=== PATIENT | male | born 1995 | race Hispanic/Latino ===

== ENCOUNTER 2017-03-16 14:04 | Emergency (ER) | payer SELFPAY ==
[2017-03-16 14:45] LABS: #Eosinphils 0.1 thou/uL (0.0-0.7); #Lymphocytes 1.7 thou/uL (1.20-3.40); #Monocytes 0.9 thou/uL (0.11-0.59); #Neutrophils 10.4 thou/uL (1.40-6.50); %Basophils 0.3 % (0.0-1.0); %Eosinophils 0.5 % (0.0-10.0); %Lymphocytes 12.7 % (21.0-51.0); %Monocytes 6.6 % (0.0-10.0); Hematocrit 46.5 % (42.0-52.0); Mean Platelet Volume 7.1 fL (7.4-10.4); Red Blood Cell (RBC) Count 5.08 mill/uL (4.70-6.10)
[2017-03-16 15:10] LABS: Troponin I Less than 0.010 ng/mL (< 0.028)
[2017-03-16 15:13] LABS: Amphetamine Detected (NotDetected); Methadone Not Detected (NotDetected); Methamphetamine Detected (NotDetected)
[2017-03-16 15:14] LABS: ALT (SGPT) 34 U/L (8-55); AST (SGOT) 33 U/L (5-34); Alkaline Phosphatase 87 U/L (40-150); Anion Gap 20 mmol/L (10-20); BUN (Urea Nitrogen) 11 mg/dL (8.9-20.6); Bilirubin, Total 0.6 mg/dL (0.2-1.2); CK (CPK) 578 U/L (30-200); Calc. Creatinine Clearance 0 mL/min (70-130); Calcium 9.5 mg/dL (7.8-10.44); Carbon Dioxide 18 mmol/L (22-29); Chloride 106 mmol/L (98-107); Estimated GFR-MDRD 85; Globulin 3.5 g/dL (2.4-3.5); Protein, Total 8.4 g/dL (6.0-8.3)
--- NOTE | 2017-03-16 15:42 | RAD ---
RADIOGRAPH CHEST 1 VIEW: 03/16/17 HISTORY: 21-year-old male with tachycardia and unresponsiveness. FINDINGS: There is no air space density, pulmonary edema, or pneumothorax. The lateral costophrenic angles ar e sharp. IMPRESSION: No acute pulmonary findings. belkis [] POS: SJ
== END 2017-03-16 18:03 | disposition home or self-care (01) ==
LOC: EEVIPCON 14:04 → ERS 14:04
DX: F14.10 Cocaine abuse, uncomplicated (principal); F11.10 Opioid abuse, uncomplicated; F32.9 Major depressive disorder, single episode, unspecified
CPT/HCPCS: 36415; 71010; 80053; 80306; 82553; 84484; 85025; 93005; 93010; 96360; 96361

== ENCOUNTER 2018-07-04 15:50 | Emergency (ER) | payer SELFPAY ==
--- NOTE | 2018-07-04 16:19 | RAD ---
3 VIEW LEFT FOOT: Date: 07/04/18 INDICATION: Great toe pain. FINDINGS: There is no fracture or dislocation. No radiopaque foreign body. There is soft tissue prominence of t he great toe. Correlate clinically. IMPRESSION: No acute osseous abnormality of the great toe of the left foot. Soft tissue prominence is seen. Corre late clinically. POS: MARISABEL
== END 2018-07-04 16:42 | disposition home or self-care (01) ==
LOC: ERS 15:50
DX: S90.112A Contusion of left great toe without damage to nail, initial encounter (principal); F32.9 Major depressive disorder, single episode, unspecified; W22.8XXA Striking against or struck by other objects, initial encounter

== ENCOUNTER 2018-07-08 13:22 | Inpatient (IN) | payer SELFPAY ==
[2018-07-08 13:58] LABS: #Basophils 0.1 thou/uL (0.0-0.2); #Lymphocytes 1.7 thou/uL (1.20-3.40); #Monocytes 1.3 thou/uL (0.11-0.59); #Neutrophils 12.6 thou/uL (1.40-6.50); %Basophils 0.6 % (0.0-1.0); %Eosinophils 0.2 % (0.0-10.0); %Monocytes 8.5 % (0.0-10.0); %Neutrophils 79.7 % (42.0-75.0); Hemoglobin 16.1 g/dL (14.0-18.0); Mean Corpuscular HGB CONC 33.8 g/dL (32.0-36.0); Mean Corpuscular Hemoglobin 30.7 pg (27.0-31.0); Mean Corpuscular Volume 90.7 fL (78.0-98.0); Mean Platelet Volume 7.4 fL (7.4-10.4); Platelet Count 313 thou/uL (130-400); RBC Distribution Width 11.8 % (11.5-14.5); Red Blood Cell (RBC) Count 5.26 mill/uL (4.70-6.10); White Blood Cell (WBC) Count 15.8 thou/uL (4.8-10.8)
[2018-07-08 14:20] LABS: ALT (SGPT) 30 U/L (8-55); AST (SGOT) 15 U/L (5-34); Albumin 4.7 g/dL (3.5-5.0); Alkaline Phosphatase 88 U/L (40-150); Anion Gap 16 mmol/L (10-20); BUN (Urea Nitrogen) 13 mg/dL (8.9-20.6); Bilirubin, Total 0.9 mg/dL (0.2-1.2); Calc. Creatinine Clearance 0 mL/min (70-130); Calcium 10.3 mg/dL (7.8-10.44); Carbon Dioxide 25 mmol/L (22-29); Chloride 100 mmol/L (98-107); Estimated GFR-MDRD 83; Glucose 102 mg/dL (70-105); Lipase 7 U/L (8-78); Protein, Total 8.7 g/dL (6.0-8.3); Sodium 137 mmol/L (136-145)
[2018-07-08 14:53] LABS: Bilirubin Small (Negative); Blood, Urine Negative (Negative); Clarity CLEAR (Clear); Glucose, Urine (Dipstick) Negative (Negative); Leukocyte Negative (Negative); Nitrite Negative (Negative); Protein, Urine (Dipstick) 30 mg/dL (Neg-Trace); Specific Gravity, Urine 1.025 (1.002-1.036)
[2018-07-08 14:55] LABS: Bacteria/HPF None Seen HPF (None Seen); Hyaline Casts/LPF 0-3 HYALINE CAST LPF (0-3 Hyaline); Pathc Cast-AUWi Flag 0.14 (0-2.49); RBC/HPF None Seen HPF (0-3); Squamous Epithelial 0-3 HPF (0-3); WBC/HPF 0-3 HPF (0-3)
[2018-07-08] MEDS ORDERED: Morphine 4 MG/ML VIAL ONE (15:52)
[2018-07-08] MEDS ORDERED: metroNIDAZOLE 500 MG/100 ML BAG ONE (15:53)
[2018-07-08] MEDS ORDERED: Levofloxacin 500 mg/D5W 100 ml Premix Bag ONE (15:53)
[2018-07-08] MEDS ORDERED: Ondansetron PF 4 MG/2 ML Vial ONE (15:53)
--- NOTE | 2018-07-08 16:00 | CT ---
CT ABDOMEN AND PELVIS PERFORMED WITHOUT CONTRAST ENHANCEMENT: 07/08/18 HISTORY: Left lower quadrant abdominal pain, difficulty urinating x2 days. The lung bases are clear. The liver, spleen, pancreas, and gallbladder regions appear unremarkable on this noncontrast study. Right and left adrenal glands and right and left kidneys are normal in size. Small periaortic and mes enteric nodes are not felt to be of significance. CT OF PELVIS PERFORMED WITH CONTRAST ENHANCEMENT: There is wall thickening to the sigmoid colon. There is pericolic inflammatory change. There is what appear to be one to two tiny diverticula and there is a contained perforation with some free air seen adjacent to the sigmoid colon. Actually what appears to be a tiny amount of air which is probably wi thin a small venous structure. There is a fluid collection which is directly anterior to the rectosig moid region measuring 4 cm. This is not accessible to percutaneous drainage. IMPRESSION: Contained perforation of the sigmoid colon with pericolonic inflammation change and a small fluid col lection. This is compatible with changes related to colitis. There do appear to be a couple of tiny d iverticula in this region, so the possibility of diverticulitis would be a consideration. Other etiol ogies for a contained perforation or colitis such was inflammatory bowel disease should also be consi derations as well as other etiologies to explain perforation, although the area of contained perforat ion is fairly high in the sigmoid colon region. These findings were discussed with Jeniffer Skelton. POS: MARISABEL
[2018-07-08] MEDS ORDERED: HYDROcodone/Acetaminophen 5/325 mg Tablet PO PRN (16:50)
[2018-07-08] MEDS ORDERED: Acetaminophen 325 MG TAB PO PRN (16:50)
[2018-07-08] MEDS ORDERED: Morphine 4 MG/ML VIAL SLOW IVP PRN ×2 (16:53→16:55)
--- NOTE | 2018-07-08 17:12 | HP ---
PRIMARY CARE PHYSICIAN: Dr. Tyler. CHIEF COMPLAINT: Abdominal discomfort of 2 days duration. HISTORY OF PRESENT ILLNESS: The patient is a 23-year-old male with no past medical history. He presented to the emergency room with abdominal discomfort that started 2 days ago. It is localized in the left lower quadrant. It started as intermittent pain. However, later on, it became more or less constant. The pain is 9/10 without any aggravating or relieving factor. He had cold sweats with low-grade fever. He did not record his temperature. He also had difficulty urinating over the past two days. No blood in the urine reported. He denies any burning in the urine as well. He took nvcu-wkw-julcgus laxatives yesterday due to 3-day history of constipation. He had watery diarrhea on and off over the last 24 hours after this. He denies any sick contacts, recent travel, or family history of irritable bowel disease. In the emergency room, initial vital signs showed temperature 98.3, respirations 18, and pulse rate of 112 with a blood pressure of 117/83 with O2 saturation 98% on room air. CT scan of the abdomen and pelvis done in the emergency room showed contained perforation of the sigmoid colon with pericolonic inflammation change and a small fluid collection compatible with colitis. There do appear to be couple of tiny diverticula in this region. The possibility of diverticulitis would be a consideration as well. Other possibilities include inflammatory bowel disease. He received Levaquin, Flagyl, and morphine with IV fluids in the emergency room. He denies any free previous endoscopies. Usual bowel movements every other day. PAST MEDICAL HISTORY: Reviewed with the patient and none. PAST SURGICAL HISTORY: Reviewed with the patient and none. ALLERGIES: THE PATIENT IS ALLERGIC TO IODINE. CURRENT HOME MEDICATIONS: Reviewed with the patient and none. SOCIAL HISTORY: He lives at home with his family. No smoking, alcohol, or drug use. FAMILY HISTORY: Positive for diabetes. REVIEW OF SYSTEMS: All other review of systems was reviewed and was found. PHYSICAL EXAMINATION: VITAL SIGNS: As discussed above. GENERAL: A 23-year-old male, in no significant distress. Pain improved after IV morphine. HEENT: Head, atraumatic and normocephalic. Sclerae anicteric. Dry mucous membranes. No oral lesion. NECK: Supple. No JVD. No carotid bruit. LUNGS: Clear to auscultation bilaterally. No wheezing, rales, or rhonchi. HEART: S1 and S2 present. Regular rate and rhythm. Tachycardic. No significant murmurs appreciated. ABDOMEN: Soft. Tenderness in the left lower quadrant. No rebound or guarding. No costovertebral angle tenderness. EXTREMITIES: No edema or calf tenderness. NEUROLOGY: Grossly nonfocal. Moves all 4 extremities. PSYCHIATRY: Alert, awake, and oriented x3. SKIN: Warm and dry. LYMPH NODES: No palpable lymph nodes in the neck. PERIPHERAL VASCULAR: Radial pulses palpable bilaterally. MUSCULOSKELETAL: No joint swelling or tenderness. LABORATORY FINDINGS: WBC 15.8 with hemoglobin 16.1 and hematocrit 47.7 with platelet count 313. Chemistry showed sodium 137, potassium 4, chloride 100, bicarb 25, BUN 13, and creatinine 1. Urinalysis showed ketones without any WBCs. CT scan of the abdomen and pelvis by my review as discussed above. Telemetry monitoring by my review showed sinus tachycardia. IMPRESSION: 1. Sepsis secondary to colitis/questionable diverticulitis. 2. Sinus tachycardia, secondary to #1. 3. Dehydration, secondary to #1. 4. Constipation, resolved after dhuf-ziw-duupanv laxative. 5. Chronic kidney disease stage 2 versus acute kidney injury. 6. Dysuria, probably secondary to #1. Urinalysis was negative. Probably secondary to bladder irritation from colitis. PLAN: The patient will be monitored on the medical floor. We will continue IV fluids. We will start him on clear-liquid diet. We will send stool workup. Consult Gastroenterology Service. Continue Levaquin and Flagyl. A.m. labs. Plan of care was discussed with the patient in detail. He stated understanding. Job ID: [id number]
[2018-07-08] MEDS ORDERED: Ibuprofen 800 MG TAB ONE (18:10)
[2018-07-08] MEDS ORDERED: Acetaminophen 500 MG TAB ONE (18:10)
[2018-07-08 19:58] VITALS: BMI 34.0
[2018-07-08] MEDS: Sodium Chloride 0.9% 1,000 ML IV SCH ×2 (21:30→23:49)
[2018-07-08] MEDS: metroNIDAZOLE 500 MG in Premix Bag 1 BAG IVPB SCH (23:46)
[2018-07-09] MEDS: HYDROcodone/Acetaminophen 5/325 mg Tablet PO PRN (01:46)
[2018-07-09] MEDS: Sodium Chloride 0.9% 1,000 ML IV SCH ×3 (01:47→20:50)
[2018-07-09 05:42] LABS: #Lymphocytes 1.8 thou/uL (1.20-3.40); #Neutrophils 9.2 thou/uL (1.40-6.50); %Basophils 0.1 % (0.0-1.0); %Eosinophils 0.4 % (0.0-10.0); %Lymphocytes 15.1 % (21.0-51.0); %Monocytes 8.4 % (0.0-10.0); Hemoglobin 13.2 g/dL (14.0-18.0); Mean Corpuscular HGB CONC 33.9 g/dL (32.0-36.0); Mean Corpuscular Volume 91.3 fL (78.0-98.0); Mean Platelet Volume 7.3 fL (7.4-10.4); Platelet Count 244 thou/uL (130-400); RBC Distribution Width 11.7 % (11.5-14.5); Red Blood Cell (RBC) Count 4.26 mill/uL (4.70-6.10); White Blood Cell (WBC) Count 12.1 thou/uL (4.8-10.8)
[2018-07-09 06:08] LABS: ALT (SGPT) 21 U/L (8-55); AST (SGOT) 12 U/L (5-34); Albumin 3.8 g/dL (3.5-5.0); Alkaline Phosphatase 74 U/L (40-150); Anion Gap 12 mmol/L (10-20); BUN (Urea Nitrogen) 11 mg/dL (8.9-20.6); Bilirubin, Total 0.5 mg/dL (0.2-1.2); CRP (Inflammatory) 22.44 mg/dL (= or < 0.5); Calc. Creatinine Clearance 180 mL/min (70-130); Calcium 8.9 mg/dL (7.8-10.44); Carbon Dioxide 24 mmol/L (22-29); Chloride 104 mmol/L (98-107); Estimated GFR-MDRD Greater than 90; Globulin 3.1 g/dL (2.4-3.5); Glucose 117 mg/dL (70-105); Magnesium 1.9 mg/dL (1.6-2.6); Potassium 3.8 mmol/L (3.5-5.1); Protein, Total 6.9 g/dL (6.0-8.3); Sodium 136 mmol/L (136-145)
[2018-07-09] MEDS: Saccharomyces boulardii 250 MG CAP PO SCH (08:31)
[2018-07-09] MEDS: metroNIDAZOLE 500 MG in Premix Bag 1 BAG IVPB SCH ×2 (08:31→15:46)
[2018-07-09] MEDS: Docusate 100 MG CAP PO SCH (20:51)
--- NOTE | 2018-07-09 21:51 | PDOC.PN ---
- Subjective Encounter Start Date: 07/09/18 Encounter Start Time: 10:00 Patient seen and examined for colitis. Abd pain improving. No N/V. No new complaints. No overnight events - Objective Resuscitation Status - Order Detail: 07/08/18 16:50 Resuscitation Status Routine Resuscitation Status: FULL: Full Resuscitation MAR Reviewed: Yes Vital Signs & Weight: Vital Signs (12 hours) Temp Pulse Resp BP Pulse Ox 07/09/18 21:00 98.8 F 110 H 18 123/78 94 L 07/09/18 17:00 99 F 97 20 114/70 95 07/09/18 16:00 99.3 F 102 H 17 104/68 93 L 07/09/18 11:13 98.1 F 90 20 108/64 94 L Weight Weight 244 lb I&O: 07/08/18 07/09/18 07/10/18 06:59 06:59 06:59 Intake Total 1480 2500 Balance 1480 2500 Result Diagrams: 07/09/18 05:04 07/09/18 05:04 Phys Exam - Physical Examination Constitutional: NAD Respiratory: no wheezing, no rhonchi Cardiovascular: RRR, no rub Gastrointestinal: soft, positive bowel sounds mild LLQ tenderness Musculoskeletal: no edema Neurological: moves all 4 limbs Dx/Plan - Plan DVT proph w/SCDs IMPRESSION: 1. Sepsis secondary to colitis/?diverticulitis. 2. Sinus tachycardia, secondary to #1. 3. Dehydration, secondary to #1. 4. Constipation, resolved after qhpg-rhv-euevxxw laxative. 5. Chronic kidney disease stage 2 versus acute kidney injury. 6. Dysuria, probably secondary to #1. PLAN: Cont IV Atbx Cont IV fluids - reduce rate Await GI input Cont clear liqd diet AM labs Review of Systems - Review of Systems Cardiovascular: negative: chest pain, palpitations, orthopnea, paroxysmal nocturnal dyspnea, edema, light headedness, other Gastrointestinal: negative: Nausea, Vomiting, Abdominal Pain, Diarrhea, Constipation, Melena, Hematochezia, Other - Medications/Allergies Allergies/Adverse Reactions: Allergies Allergy/AdvReac Type Severity Reaction Status Date / Time Iodine and Iodide Containing Allergy Verified 07/08/18 19:52 Produc Medications: Current Medications Acetaminophen (Tylenol) 650 mg PO Q4H PRN PRN Reason: Headache/Fever/Mild Pain (1-3) Last Admin: 07/09/18 05:21 Dose: 650 mg Hydrocodone Bitart/Acetaminophen ([place] 5/325) 1 tab PO Q4H PRN PRN Reason: Moderate Pain (4-6) Stop: 07/10/18 16:55 Last Admin: 07/09/18 01:46 Dose: 1 tab Docusate Sodium (Colace) 100 mg PO BID REPLACED BY [facility] Last Admin: 07/09/18 20:51 Dose: 100 mg Metronidazole 500 mg/ Device 100 mls @ 100 mls/hr IVPB 0800,1600,[id number] REPLACED BY [facility] Last Admin: 07/09/18 15:46 Dose: 100 mls Levofloxacin 500 mg/ Device 100 mls @ 100 mls/hr IVPB Q24HR REPLACED BY [facility] Last Admin: 07/09/18 14:44 Dose: 100 mls Sodium Chloride (Normal Saline 0.9%) 1,000 mls @ 150 mls/hr IV .Q6H40M REPLACED BY [facility] Last Admin: 07/09/18 20:50 Dose: 1,000 mls Morphine Sulfate (Morphine) 4 mg SLOW IVP Q4H PRN PRN Reason: Severe Pain (7-10) Stop: 07/10/18 08:00 Morphine Sulfate (Morphine) 2 mg SLOW IVP Q4H PRN PRN Reason: Moderate Pain (4-6) Stop: 07/10/18 08:00 Saccharomyces Boulardii (Florastor) 250 mg PO DAILY REPLACED BY [facility] Last Admin: 07/09/18 08:31 Dose: 250 mg
--- NOTE | 2018-07-09 23:59 | CON ---
DATE OF CONSULTATION: REASON FOR CONSULT: Perforated sigmoid colon. HISTORY OF PRESENT ILLNESS: Mr. Dash is a 23-year-old who came to the hospital on 07/05 with complaints of left foot pain, was given a prescription for acetaminophen and codeine and sent home. He came back to the hospital on 07/08 with complaints of dysuria for about 2 days and intermittent left lower quadrant pain, some pain radiating to the left groin as well. He had some bright red blood in the stool as well as associated diaphoresis. He felt he is constipated for a few days. He had taken some Advil and laxatives at home. In the emergency room, he appeared ill with subjective fever and a pulse of 112. Labs showed a white count of 15.8, normal hemoglobin and platelets, normal comprehensive metabolic profile except for protein of 8.7, CRP of 22. Lipase was 7. Urinalysis showed a little protein and ketones. No white blood cells or bacteria. He had a CAT scan on 07/08 that showed a fluid collection into the sigmoid colon, 4 cm in size. Free air adjacent to the sigmoid colon in that area and it contained perforation in this area. The patient states prior to this he had no symptoms of abdominal pain. He has never had any problems with diarrhea or bleeding. Everything was acute starting on Saturday. He denies any drug use, alcohol use, tobacco use. He was admitted to the hospital by Dr. Garzon of Internal Medicine, started on Levaquin and Flagyl, and we have been consulted. PAST MEDICAL HISTORY: Negative. PAST SURGICAL HISTORY: Negative. ALLERGIES: IODINE. MEDICATIONS: At home, none. SOCIAL HISTORY: Lives with his family. He does not smoke or drink. Denies drug use. FAMILY HISTORY: Positive for diabetes. No history of GI or colon problems except for a great grandfather with colon cancer and a grandfather with colon cancer on his mother's side. His mother states she has not had a colonoscopy. REVIEW OF SYSTEMS: Negative for dysuria, frequency, urgency now, fever or chills, or masses. CAT scan films reviewed. Laboratories reviewed. ASSESSMENT: Perforated sigmoid colon of unclear etiology with 4 cm fluid collection, treated empirically presently with Levaquin and Flagyl. Diverticulitis is very uncommon in a 23-year-old. He was constipated prior to this and took some laxatives and forceful stools. 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 Denies using those now. RECOMMENDATION: Although he does appear to be improving with conservative therapy, his white count dropped down to 12,000. Agree with the fluid collection, unclear etiology for that and the low likelihood of diverticular disease in this age group, surgical consultation should be obtained. They may want to follow up conservatively with antibiotics and rescanning in several weeks' time, but I think we need to get them to evaluate the patient as this is a colon perforation. Job ID: [id number]
[2018-07-10] MEDS: metroNIDAZOLE 500 MG in Premix Bag 1 BAG IVPB SCH ×2 (00:15→07:46)
[2018-07-10] MEDS: Sodium Chloride 0.9% 1,000 ML IV SCH ×2 (00:16→09:14)
[2018-07-10] MEDS: HYDROcodone/Acetaminophen 5/325 mg Tablet PO PRN (00:17)
[2018-07-10] MEDS: Docusate 100 MG CAP PO SCH ×2 (07:47→21:17)
[2018-07-10] MEDS: Saccharomyces boulardii 250 MG CAP PO SCH (07:47)
[2018-07-10 08:14] LABS: #Eosinphils 0.1 thou/uL (0.0-0.7); #Lymphocytes 1.6 thou/uL (1.20-3.40); #Monocytes 0.9 thou/uL (0.11-0.59); #Neutrophils 7.5 thou/uL (1.40-6.50); %Basophils 0.4 % (0.0-1.0); %Eosinophils 0.5 % (0.0-10.0); %Lymphocytes 16.1 % (21.0-51.0); Hemoglobin 12.9 g/dL (14.0-18.0); Mean Corpuscular HGB CONC 33.9 g/dL (32.0-36.0); Mean Corpuscular Hemoglobin 31.1 pg (27.0-31.0); Mean Platelet Volume 7.1 fL (7.4-10.4); Platelet Count 273 thou/uL (130-400); RBC Distribution Width 11.7 % (11.5-14.5); Red Blood Cell (RBC) Count 4.13 mill/uL (4.70-6.10); White Blood Cell (WBC) Count 10.1 thou/uL (4.8-10.8)
[2018-07-10 08:37] LABS: ALT (SGPT) 18 U/L (8-55); AST (SGOT) 14 U/L (5-34); Albumin 3.7 g/dL (3.5-5.0); Alkaline Phosphatase 76 U/L (40-150); Anion Gap 13 mmol/L (10-20); BUN (Urea Nitrogen) 6 mg/dL (8.9-20.6); Bilirubin, Total 0.5 mg/dL (0.2-1.2); Calc. Creatinine Clearance 204 mL/min (70-130); Calcium 9.3 mg/dL (7.8-10.44); Carbon Dioxide 22 mmol/L (22-29); Chloride 105 mmol/L (98-107); Estimated GFR-MDRD Greater than 90; Globulin 3.2 g/dL (2.4-3.5); Glucose 97 mg/dL (70-105); Protein, Total 6.9 g/dL (6.0-8.3); Sodium 136 mmol/L (136-145)
[2018-07-10] MEDS ORDERED: Ibuprofen 800 MG TAB PO PRN (11:59)
[2018-07-10] MEDS ORDERED: traMADol HCl 50 MG TAB PO PRN ×2 (11:59)
[2018-07-10] MEDS ORDERED: Acetaminophen 325 MG TAB PO SCH (12:00)
[2018-07-10] MEDS ORDERED: Ibuprofen 600 MG TAB PO PRN (12:35)
--- NOTE | 2018-07-10 12:54 | CON ---
DATE OF CONSULTATION: 07/10/2018 HISTORY: A 23-year-old man, presented to the emergency department yesterday with 2-day history of serious onset abdominal pain. Pain was initially described as crampy. He had one bout of bright red blood per rectum. Two days later, the pain has now intensified, rated at 10/10 upon presentation to the emergency department yesterday. Workup yesterday with CT scan of the abdomen and pelvis in addition to laboratory studies was consistent with acute perforated sigmoid colon diverticulitis. The patient was admitted with IV antibiotics and placed on clear liquid diet. This morning, he reports 1/10 abdominal pain. He just had a bowel movement this morning. He denies any fevers or chills. His maternal grandmother is at bedside confirms history. PAST MEDICAL HISTORY: The patient denies any previous medical problems. PAST SURGICAL HISTORY: He has had no previous surgeries. CURRENT MEDICATIONS: None except for tqdj-rck-ttwzbef analgesics. ALLERGIES: THE PATIENT REPORTS ALLERGIES TO IODINE. FAMILY HISTORY: Pertinent for essential hypertension and diabetes mellitus in his mother. There is maternal great aunt with heart disease. There is no family history of inflammatory bowel disease or cancer. REVIEW OF SYSTEMS: Ten-point review of systems essentially unremarkable except as stated in past medical history and chief complaint. PHYSICAL EXAMINATION: GENERAL: This reveals 23-year-old normally developed man, who is otherwise coherent and interactive and appears stated age. The patient is alert and oriented x3, appears to be in no acute distress at the time of my evaluation. VITAL SIGNS: Include blood pressure 100/66, pulse is 88, respiratory rate is 20 , temperature is 98.9 degrees Fahrenheit, maximum temperature since admission 99.4 degrees Fahrenheit, and oxygen saturation 95% on room air. HEENT: Reveals normocephalic and atraumatic. Pupils are equal, round, and reactive to light and accommodation. HEART: Reveals regular rate and rhythm. No murmurs or gallops auscultated. LUNGS: Clear to auscultation bilaterally. Breathing, regular and nonlabored. ABDOMEN: Soft with mild tenderness to palpation. He clearly has no rebound tenderness on palpation. Liver and spleen are nonpalpable below costal margin. EXTREMITIES: Reveal 2+ radial and pedal pulses bilaterally. No ankle edema is present. NEUROLOGIC: Reveals no focal deficits present. LABORATORY FINDINGS: Today includes CBC with 10,100 white blood cells, hemoglobin and hematocrit of 12.9 and 38.0 respectively, and platelet count is 273,000. CBC on 07/08/2018 with 15,800 white blood cells. Metabolic profile today; sodium 136, potassium is 4.0, chloride is 105, bicarb is 22, BUN 6, creatinine is 0.88, and glucose is 97. AST and ALT 14 and 18 respectively. IMAGING DATA: I have personally reviewed the CT scan of the abdomen and pelvis on presentation on 07/08/2018, which reveals a small fluid collection adjacent to the sigmoid colon with associated small pneumoperitoneum with fat stranding. IMPRESSION: Acute sigmoid colon diverticulitis with microperforation. RECOMMENDATIONS: Continue with current antibiotic regimen, which could be converted to p.o. intake. The patient will need antibiotics for 2 weeks. He is to follow up with me in the General Surgery Clinic in 2 weeks with a repeat CT scan of the abdomen and pelvis. The above findings and plan have been discussed with the patient, who indicates understanding of the information given. There is no acute surgical indication at this time. Diet will be increased to regular. Job ID: [id number] [facility] HOSPITALAgnes
[2018-07-10] MEDS: Acetaminophen 500 MG TAB PO SCH ×2 (13:56→21:17)
[2018-07-10] MEDS: metroNIDAZOLE 500 MG TAB PO SCH ×2 (15:56→21:17)
--- NOTE | 2018-07-10 19:17 | PDOC.PN ---
- Subjective Encounter Start Date: 07/10/18 Encounter Start Time: 19:15 Subjective: Seen and examined no new complaint - Objective Resuscitation Status - Order Detail: 07/08/18 16:50 Resuscitation Status Routine Resuscitation Status: FULL: Full Resuscitation Vital Signs & Weight: Vital Signs (12 hours) Temp Pulse Resp BP Pulse Ox 07/10/18 15:51 99 F 07/10/18 11:22 98.9 F 07/10/18 07:44 98.4 F 88 20 100/66 94 L Weight Weight 244 lb I&O: 07/09/18 07/10/18 07/11/18 06:59 06:59 06:59 Intake Total 1480 2500 Balance 1480 2500 Result Diagrams: 07/10/18 08:04 07/10/18 08:04 Phys Exam - Physical Examination Constitutional: NAD HEENT: PERRLA, moist MMs, sclera anicteric, TM's clear Neck: no nodes, no JVD, supple, full ROM Respiratory: no wheezing, no rales, no rhonchi, clear to auscultation bilateral Cardiovascular: RRR, no significant murmur, no rub Gastrointestinal: no distention, positive bowel sounds Musculoskeletal: no edema, pulses present Neurological: non-focal, normal sensation, moves all 4 limbs Dx/Plan (1) Diverticulitis Code(s): K57.92 - DVTRCLI OF INTEST, PART UNSP, W/O PERF OR ABSCESS W/O BLEED Status: Acute (2) Sepsis Code(s): A41.9 - SEPSIS, UNSPECIFIED ORGANISM Status: Acute (3) Dehydration Code(s): E86.0 - DEHYDRATION Status: Acute (4) CKD (chronic kidney disease) stage 2, GFR 60-89 ml/min Code(s): N18.2 - CHRONIC KIDNEY DISEASE, STAGE 2 (MILD) Status: Acute - Plan continue antibiotics Pain management -: Appreciate surgical input -: Nuavvkuhaze-lz-lbfxfaov IVF rate * .
--- NOTE | 2018-07-10 20:04 | PRG ---
DATE OF SERVICE: 07/10/2018 SUBJECTIVE: Mr. Dash feels much better. He has had a T-max of 99 today, yesterday was 100.3 and the day before 100.6. OBJECTIVE: VITAL SIGNS: His blood pressure 100/66, respirations 20, pulse 88. LUNGS: Clear. ABDOMEN: Soft, nontender. There is no rebound or guarding. The tenderness in the left lower quadrant has resolved. LABORATORY DATA: White count is 10.1, hemoglobin is 12.9, platelet count is 273. BMP is normal. Stool is negative for C diff, moderate normal braden, no E coli, no Campylobacter. Parasite screen negative. ASSESSMENT: Focal inflammation of the colon with perforation and 4 cm fluid collection, responding to IV antibiotics clinically. Likely, this is diverticulitis at a very young age, possibility of ischemic event is possible, inflammatory bowel disease is possible. However, he is responding very quickly to what seems to have been an acute event with no antecedent symptoms. RECOMMENDATIONS: Agree with General Surgery. If he continues to improve, we could switch to oral antibiotics tomorrow and treat for 2 weeks. We will see him back with a repeat CAT scan of the abdomen and pelvis at that time. If he has an abscess, he would need drainage and surgery. Otherwise, we can probably proceed with a colonoscopy in 6 weeks to make sure there is no other underlying disease. Job ID: [id number]
[2018-07-10] MEDS: Ciprofloxacin 500 MG TAB PO SCH (21:17)
[2018-07-11] MEDS: Sodium Chloride 0.9% 1,000 ML IV SCH ×2 (00:58→08:47)
[2018-07-11] MEDS: Acetaminophen 500 MG TAB PO SCH ×3 (03:36→14:56)
[2018-07-11] MEDS: Ciprofloxacin 500 MG TAB PO SCH (06:10)
[2018-07-11 06:55] LABS: #Eosinphils 0.1 thou/uL (0.0-0.7); #Lymphocytes 1.9 thou/uL (1.20-3.40); #Monocytes 0.7 thou/uL (0.11-0.59); #Neutrophils 5.8 thou/uL (1.40-6.50); %Basophils 0.4 % (0.0-1.0); %Eosinophils 1.2 % (0.0-10.0); %Lymphocytes 22.2 % (21.0-51.0); %Monocytes 8.3 % (0.0-10.0); %Neutrophils 67.9 % (42.0-75.0); Hemoglobin 13.1 g/dL (14.0-18.0); Mean Corpuscular HGB CONC 33.7 g/dL (32.0-36.0); Mean Corpuscular Hemoglobin 31.1 pg (27.0-31.0); Mean Corpuscular Volume 92.4 fL (78.0-98.0); Platelet Count 292 thou/uL (130-400); RBC Distribution Width 11.8 % (11.5-14.5); White Blood Cell (WBC) Count 8.6 thou/uL (4.8-10.8)
[2018-07-11] MEDS: Saccharomyces boulardii 250 MG CAP PO SCH (08:43)
[2018-07-11] MEDS: metroNIDAZOLE 500 MG TAB PO SCH ×2 (08:43→14:56)
[2018-07-11] MEDS: Docusate 100 MG CAP PO SCH (08:43)
--- NOTE | 2018-07-11 14:28 | PRG ---
DATE OF SERVICE: 07/11/2018 SUBJECTIVE: Mr. Dash is a 23-year-old man admitted with acute sigmoid colon diverticulitis with perforation. The patient was started on IV antibiotics, which was subsequently converted to p.o. antibiotics 24 hours later when he became afebrile. He tolerated the antibiotics and diet well. This morning, he is awake and alert, reporting no abdominal pain. He has had bowel movement daily and no diarrhea. OBJECTIVE: VITAL SIGNS: This morning include blood pressure 123/70, pulse 66, respiratory rate is 16, temperature 98.2 degrees Fahrenheit, and oxygen saturation 95% on room air. HEART: Reveals regular rate and rhythm. LUNGS: Clear to auscultation bilaterally. Breathing was nonlabored. ABDOMEN: Soft, nontender, and nondistended. Bowel sounds in all four quadrants appear normoactive. NEUROLOGIC: Reveals no focal deficits present. LABORATORY FINDINGS: Today include a CBC with white blood cells 8600, hemoglobin and hematocrit 13.1 and 38.9 respectively, and platelet count is 292,000. IMPRESSION: 1. Resolving acute sigmoid colon diverticulitis. 2. Resolved acute peritonitis. PLAN: 1. Continue with antibiotics for the next 2 weeks. 2. The patient is certainly stable for discharge at the discretion of the primary service. 3. He is to follow up with me in the surgery clinic in 2 weeks with a repeat CT scan of the abdomen and pelvis with p.o. and IV contrast. I have given the patient a prescription for ciprofloxacin 500 mg #28, to be taken one p.o. b.i.d. until all taken. Additionally, he is given a script for metronidazole 500 mg #42, to be taken one p.o. t.i.d. until all taken. 4. The patient is to call with any questions or problems. 5. Return to the emergency department with any onset of fever especially if it is over 101 degrees Fahrenheit, intolerance to oral intake or any return of abdominal pain which is not manageable with acetaminophen or ibuprofen. 6. The patient indicates understanding information I have given him today. 7. I answered his questions. Job ID: [id number]
[2018-07-11 17:16] VITALS: BP 134/79; TEMP 98.1
== END 2018-07-11 15:55 | disposition home or self-care (01) | DRG 872 ==
LOC: ERS 13:22 → T4-A 15:59
PROVIDERS: ADMIT Hospitalist; ATTEND Hospitalist
DX: A41.9 Sepsis, unspecified organism (principal); K57.20 Diverticulitis of large intestine with perforation and abscess without bleeding; R10.9 Unspecified abdominal pain; Z91.041 Radiographic dye allergy status; E86.0 Dehydration; K59.00 Constipation, unspecified; N18.2 Chronic kidney disease, stage 2 (mild); R30.0 Dysuria
CPT/HCPCS: 36415; 74176; 80053; 81003; 81015; 83630; 83690; 83735; 85025; 86140; 87045; 87046; 87324; 87328; 87329; 87449; 87899; 96365; 96367; 96375; J1956; J2270; J2405

== ENCOUNTER 2020-01-03 13:17 | Inpatient (IN) | payer SELFPAY ==
[2020-01-03] MEDS ORDERED: Iopamidol-370 76% 500 ML 1 ML ONE (13:37)
[2020-01-03] MEDS ORDERED: Morphine 4 MG/ML VIAL ONE (13:58)
[2020-01-03 14:20] LABS: #Lymphocytes 1.6 thou/uL (1.20-3.40); #Monocytes 1.2 thou/uL (0.11-0.59); %Basophils 0.2 % (0.0-1.0); %Eosinophils 0.2 % (0.0-10.0); %Lymphocytes 9.4 % (21.0-51.0); %Monocytes 7.3 % (0.0-10.0); %Neutrophils 82.8 % (42.0-75.0); Hemoglobin 15.9 g/dL (14.0-18.0); Mean Corpuscular HGB CONC 34.1 g/dL (32.0-36.0); Mean Corpuscular Hemoglobin 31.6 pg (27.0-31.0); Mean Corpuscular Volume 92.6 fL (78.0-98.0); Mean Platelet Volume 7.5 fL (7.4-10.4); Platelet Count 212 thou/uL (130-400); RBC Distribution Width 11.9 % (11.5-14.5); Red Blood Cell (RBC) Count 5.05 mill/uL (4.70-6.10); White Blood Cell (WBC) Count 16.9 thou/uL (4.8-10.8)
[2020-01-03 14:41] LABS: Bacteria/HPF None Seen HPF (None Seen); Bilirubin Negative (Negative); Blood, Urine Negative (Negative); Clarity Clear (Clear); Glucose, Urine (Dipstick) Normal (Negative); Ketone, Urine Negative (Negative); Leukocyte Negative Leu/uL (Negative); Nitrite Negative (Negative); Protein, Urine (Dipstick) 70 mg/dL (Neg-Trace); RBC/HPF 0-3 HPF (0-3); Specific Gravity, Urine 1.033 (1.002-1.036); Squamous Epithelial None Seen HPF (0-3); Urobilinogen 12 mg/dL (Less than 2); WBC/HPF 0-3 HPF (0-3)
[2020-01-03 14:45] LABS: ALT (SGPT) 14 U/L (8-55); AST (SGOT) 13 U/L (5-34); Albumin 4.4 g/dL (3.5-5.0); Alkaline Phosphatase 69 U/L (40-110); Anion Gap 14 mmol/L (10-20); BUN (Urea Nitrogen) 9 mg/dL (8.9-20.6); Calc. Creatinine Clearance 0 mL/min (70-130); Calcium 9.3 mg/dL (7.8-10.44); Carbon Dioxide 24 mmol/L (22-29); Chloride 101 mmol/L (98-107); Estimated GFR-MDRD 87; Globulin 3.7 g/dL (2.4-3.5); Glucose 95 mg/dL (70-105); Lipase 5 U/L (8-78); Potassium 3.8 mmol/L (3.5-5.1); Protein, Total 8.1 g/dL (6.0-8.3); Sodium 135 mmol/L (136-145)
--- NOTE | 2020-01-03 14:50 | CT ---
CT Abdomen Pelvis W Con: 01/03/2020 1:58 PM CLINICAL INFORMATION: Bilateral lower abdominal pain for 2 days COMPARISON: 07/08/2018 TECHNIQUE: Multiple contiguous axial images were obtained and a CT of the abdomen and pelvis with IV contrast. C oronal and sagittal reformats were performed. FINDINGS: Lower Chest: within normal limits. Abdomen: Liver: within normal limits. Bile Ducts: Normal caliber. Gallbladder: No calcified gallstones. Normal caliber wall. Pancreas: within normal limits. Spleen: within normal limits. Adrenals: within normal limits. Kidneys: within normal limits. Pelvis: Reproductive Organs: No pelvic masses. Ureters: within normal limits. Bladder: within normal limits. Peritoneum: There is a questionable bubble of free air along the anterior aspect of the inflammatory change. No focal fluid collection is seen. Bowel: Normal caliber. There is inflammatory change surrounding the sigmoid colon. The appendix is no rmal in separate from this inflammatory change. There are questionable diverticula in the sigmoid colon. Mesentery and Retroperitoneum: No enlarged mesenteric or retroperitoneal lymph nodes. Vessels: Normal. Abdominal Wall: within normal limits. Bones: Within normal limits IMPRESSION: Sigmoid colitis. This could be secondary to an infectious or inflammatory colitis. Acute diverticulit is is a possibility as well.
[2020-01-03] MEDS ORDERED: Piperacillin/Tazobactam 4.5 GM VIAL ONE (15:10)
[2020-01-03] MEDS ORDERED: Acetaminophen 500 MG TAB ONE (15:24)
[2020-01-03] MEDS ORDERED: Ondansetron ODT 4 MG TAB PO PRN (16:29)
[2020-01-03] MEDS ORDERED: Acetaminophen 650 MG Suppository PR PRN (16:29)
[2020-01-03] MEDS ORDERED: Ondansetron PF 4 MG/2 ML Vial IVP PRN (16:29)
[2020-01-03] MEDS ORDERED: Morphine 2 MG/ML VIAL SLOW IVP PRN (16:39)
--- NOTE | 2020-01-03 17:24 | HP ---
PRIMARY CARE PHYSICIAN: Dr. Tyler. CHIEF COMPLAINT: Abdominal pain. HISTORY OF PRESENT ILLNESS: The patient is a 24-year-old male with a past medical history significant for a colon rupture in 2018, who presents to the ER for the above complaint. The patient reports development of abdominal pain x2 days, reports that the pain is located to the left lower pelvic region, describes it as cramping, intermittent, exacerbated with movement and deep palpation, relieved after BMs temporarily. He reports some associated diarrhea. He denies any nausea, vomiting, or blood in his stools. He denies any dysuria or urinary frequency or urgency. He denies any penile discharge or testicular swelling. He does report a low-grade temperature last night of 100.5. He denies any known sick contacts. He has no recent travel. He has not ingested any uncooked foods and has not recently been in the hospital or been on antibiotics. In the ER, the patient presented febrile with a temperature of a 102.2, tachycardic with a pulse of 106 with normal respirations, normal SpO2 sats, and a 10/[address] of the abdomen and pelvis showed sigmoid colitis. WBCs are 16.9. Lactic acid of 1.2. Electrolytes were unremarkable. UA was unremarkable. The patient was given Zosyn, Tylenol, 1 L of normal saline, and some morphine and currently symptoms are improved. PAST MEDICAL HISTORY: Colon rupture in 2018. PAST SURGICAL HISTORY: None. SOCIAL HISTORY: The patient lives with his family, his aunt at home. He works at the [email or web address]. He has no history of smoking, alcohol intake, or illicit drug use. FAMILY HISTORY: Noncontributory to this case. ALLERGIES: IODINE ALLERGY. HOME MEDICATIONS: No home medications. REVIEW OF SYSTEMS: All review of systems are negative unless otherwise stated in HPI. PHYSICAL EXAMINATION: VITAL SIGNS: Blood pressure of 125/86, pulse of 106, respirations 18, temperature of 102.2, 99% on room air. Pain 3/10. CONSTITUTIONAL: The patient is alert and oriented to person, place, and time. Appears uncomfortable, nontoxic in appearance. HEAD: Atraumatic and normocephalic. EYES: PERRLA. Extraocular muscles intact. ENT: Nares patent bilaterally. Oropharynx is clear. Uvula midline. Moist mucous membranes. No oral lesions. NECK: No cervical spinous tenderness. Full range of motion. No cervical adenopathy. No JVD. CHEST/RESPIRATORY: Respirations even and nonlabored. Clear to auscultation. No rhonchi, wheezes, or rales. CARDIOVASCULAR: S1, S2 appreciated. Tachycardic. No murmurs, rubs, or gallops. ABDOMEN: Soft. Mild to moderate tenderness in the left lower quadrant. Active bowel sounds. Mild guarding. No rigidity. No rebound. Negative Siddiqi sign. BACK: Full range of motion. No central spinous tenderness. No CVA tenderness. EXTREMITIES: Upper extremities; full range of motion. Strength intact. Sensation intact. Palpable radial pulses. Lower extremities; full range of motion. Strength normal. Sensation intact. Palpable pedal pulses. No swelling. NEUROLOGIC: The patient is alert and oriented to person, place, and time. Moving all extremities well. No focal motor deficits. Normal gait. PSYCH: Normal affect. A and O x3. LABS AND DIAGNOSTICS: CT of the abdomen did show some sigmoid colitis. Sodium 135, potassium 3.8, chloride 101, carbon dioxide 24, BUN 9, creatinine 1.05, glucose 95, lactic acid 1.2, calcium 9.3, total bilirubin 1.0, AST 13, ALT 14, alkaline phosphatase 69, albumin 4.4, lipase of 5. WBC 16.9, hemoglobin 15.9, hematocrit 46.8, platelets 212. UA had some protein and urobilinogen. IMPRESSION AND PLAN: 1. Sigmoid colitis. We will admit the patient to the surgical floor, inpatient status. Expected length of stay greater than 2 midnights. The patient presented with WBCs of 16.[address] abdomen was positive for sigmoid colitis. We will start meropenem. We will give 2 L of normal saline to meet the 30 mL per kg sepsis protocol, then we will start D5 half-normal saline with 10 mEq of potassium at 150 an hour. We will consult GI and surgical. We will repeat lactic and CRP in the a.m. We will leave the patient n.p.o. with ice chips. We will get some stool studies because the patient reported some diarrhea. We will add morphine p.r.n. for pain. Blood cultures are pending. 2. Fever, likely related to problem #1. 3. History of colon rupture in 2018. The patient has reported no problems since that admission. 4. SCDs for deep venous thrombosis prophylaxis. Protonix for GI prophylaxis. The patient is a full code. 5. Discussed the case with Dr. Robin. Job ID: [id number] MTDD
[2020-01-03] MEDS ORDERED: Sodium Chloride 0.9% (PF) 10 ML VIAL FS PRN (17:30)
[2020-01-03] MEDS: Sodium Chloride 0.9% 1,000 ML IV SCH ×2 (17:49→17:51)
[2020-01-03] MEDS: MEROPENEM 1 GM/50 ML 1 GM in Premix Bag 1 BAG IVPB SCH (18:01)
[2020-01-03] MEDS ORDERED: Magnesium 2 GM/50 ML 2 GM in Premix Bag 1 BAG IVPB SCH (18:45)
[2020-01-03] MEDS: Potassium Chloride 10 MEQ in Dextrose 5% in Water 1,000 ML IV SCH (19:07)
[2020-01-03] MEDS ORDERED: Melatonin 3 MG TAB PO PRN (22:47)
[2020-01-03] MEDS: Acetaminophen 325 MG TAB PO PRN (23:15)
[2020-01-03 23:23] VITALS: BMI 31.1
[2020-01-04] MEDS ORDERED: IBUPROFEN IVPB SCH
[2020-01-04] MEDS ORDERED: SODIUM CHLORIDE 0.9% IVPB SCH
[2020-01-04] MEDS: Potassium Chloride 10 MEQ in Dextrose 5% in Water 1,000 ML IV SCH (00:39)
[2020-01-04] MEDS: MEROPENEM 1 GM/50 ML 1 GM in Premix Bag 1 BAG IVPB SCH ×2 (02:48→11:22)
[2020-01-04 04:52] LABS: #Lymphocytes 1.7 thou/uL (1.20-3.40); #Monocytes 0.9 thou/uL (0.11-0.59); #Neutrophils 9.8 thou/uL (1.40-6.50); %Basophils 0.2 % (0.0-1.0); %Eosinophils 0.2 % (0.0-10.0); %Lymphocytes 13.6 % (21.0-51.0); %Monocytes 7.1 % (0.0-10.0); %Neutrophils 78.9 % (42.0-75.0); Mean Corpuscular HGB CONC 32.7 g/dL (32.0-36.0); Mean Corpuscular Hemoglobin 30.2 pg (27.0-31.0); Mean Corpuscular Volume 92.3 fL (78.0-98.0); Mean Platelet Volume 8.1 fL (7.4-10.4); Platelet Count 171 thou/uL (130-400); RBC Distribution Width 11.8 % (11.5-14.5); Red Blood Cell (RBC) Count 3.99 mill/uL (4.70-6.10); White Blood Cell (WBC) Count 12.4 thou/uL (4.8-10.8)
[2020-01-04 05:14] LABS: Lactic Acid 0.8 mmol/L (0.5-2.2)
[2020-01-04 05:39] LABS: Anion Gap 10 mmol/L (10-20); BUN (Urea Nitrogen) 6 mg/dL (8.9-20.6); CRP (Inflammatory) 30.84 mg/dL (= or < 0.5); Calc. Creatinine Clearance 187 mL/min (70-130); Calcium 8.1 mg/dL (7.8-10.44); Carbon Dioxide 23 mmol/L (22-29); Chloride 105 mmol/L (98-107); Estimated GFR-MDRD Greater than 90; Glucose 106 mg/dL (70-105); Potassium 3.7 mmol/L (3.5-5.1); Sodium 134 mmol/L (136-145)
[2020-01-04] MEDS ORDERED: Potassium Chloride 10 MEQ in Dextrose 5% in Water 1,000 ML IV SCH (06:00)
--- NOTE | 2020-01-04 10:11 | PDOC.HOSPP ---
- Subjective Encounter Date: 01/04/20 Encounter Time: 16:00 Subjective: Mr. Dash is a 24 y/o M with a history for diverticulitis who presented for abd pain with diarrhea. CT d/w microperforation. Abd pain improving. No N/V. Diarrhea slowing down. - Objective Vital Signs & Weight: Vital Signs (12 hours) Temp Pulse Resp BP Pulse Ox 01/04/20 07:58 98.1 F 80 12 99/56 L 100 01/04/20 03:20 71 18 93/55 L 98 01/04/20 03:00 97.7 F 01/04/20 00:45 100.0 F H 97 20 105/50 L 97 01/03/20 23:36 103.1 F H 118 H 20 Weight Weight 230 lb Result Diagrams: 01/05/20 05:25 01/05/20 05:24 Radiology Reviewed by me: Yes (CT abd - colitis) EKG Reviewed by me: Yes (Tele ST) Hospitalist ROS - Review of Systems Constitutional: denies: fever, chills, sweats, weakness, malaise, other Respiratory: denies: cough, dry, shortness of breath, hemoptysis, SOB with excertion, pleuritic pain, sputum, wheezing, other Cardiovascular: denies: chest pain, palpitations, orthopnea, paroxysmal noc. dyspnea, edema, light headedness, other Gastrointestinal: reports: abdominal pain. denies: nausea, vomiting, diarrhea, constipation, melena, hematochezia, other Genitourinary: denies: dysuria, frequency, incontinence, hematuria, retention, other Neurological: denies: weakness, numbness, incoordination, change in speech, confusion, seizures, other - Medication Medications: Active Medications Generic Name Dose Route Start Last Admin Trade Name Freq PRN Reason Stop Dose Admin Acetaminophen 650 mg 01/03/20 16:29 01/03/20 23:15 Tylenol PO 650 mg Q4H PRN Administration Headache/Fever/Mild Pain (1-3) Meropenem 1 gm/ Device 50 mls @ 100 mls/hr 01/03/20 18:00 01/04/20 02:48 IVPB 50 mls 0200,1000,1800 JENNIFER Administration Melatonin 6 mg 01/03/20 22:47 01/03/20 23:14 Melatonin PO 6 mg HS PRN Administration Insomnia - Exam General Appearance: NAD, awake alert Neck: no JVD Heart: RRR, no gallops, no rubs Respiratory: no wheezes, no ronchi Gastrointestinal: soft, normal bowel sounds, no guarding, no rigidity, tender to palpation (LLQ) Extremities: no cyanosis, no clubbing Neurological: no new deficit Psychiatric: A&O x 3 Hosp A/P - Plan DVT proph w/SCDs Sepsis due to Colitis/Diverticulitis with microperforation Sinus tachycardia due to #1 Obesity BMI 31.2 Hyponatremia PLAN: Cont Zosyn Cont Clear liqd diet Cont IVF Ambulate Transfer to medical consult Certified Caregiver
[2020-01-04] MEDS ORDERED: Sodium Chloride 0.9% 1,000 ML IV SCH (10:15)
[2020-01-04] MEDS: Acetaminophen 325 MG TAB PO PRN (10:15)
[2020-01-04] MEDS ORDERED: Ondansetron ODT 8 MG TAB SL PRN (11:50)
[2020-01-04] MEDS ORDERED: Acetaminophen 500 MG TAB PO PRN (11:50)
[2020-01-04] MEDS ORDERED: traMADol HCl 50 MG TAB PO PRN ×2 (11:50)
[2020-01-04] MEDS: Ketorolac Tromethamine 30 MG/ML VIAL IVP SCH ×2 (12:13→17:58)
[2020-01-04] MEDS: Piperacillin/Tazobactam 4.5 GM in Sodium Chloride 0.9% 100 ML IVPB SCH ×2 (12:14→17:56)
--- NOTE | 2020-01-04 13:24 | CON ---
DATE OF CONSULTATION: HISTORY OF PRESENT ILLNESS: Raheel Dash is a 24-year-old male patient, admitted by hospitalist for diverticulitis. The patient was admitted to this hospital facility in 2019 for CAT scan-proven diverticulitis. He was treated nonsurgically, and since that time, he has not had any problems until this admission. He began experiencing pain. He was seen in the emergency room. CAT scan revealed changes of sigmoid diverticulitis and he was started on intravenous antibiotics and kept on clear liquids. By today, he is feeling somewhat better. When he was here in 2019, it was advised he have a colonoscopy in 6 to 8 weeks, which he did not follow up with. He does not have any insurance. ALLERGIES: IODINE. SOCIAL HISTORY: Tobacco, none. Alcohol, rarely. The patient lives with his family. PAST SURGICAL HISTORY: None. PAST MEDICAL HISTORY: Diverticulitis in 2019, treated as an inpatient. No interval episodes. REVIEW OF SYSTEMS: Noncontributory. FAMILY HISTORY: Noncontributory. PHYSICAL EXAMINATION: VITAL SIGNS: Height 6 feet, weight 230 pounds, 31 BMI, temperature 100.2 degrees, heart rate 110, and blood pressure 98/51. HEAD, EARS, EYES, NOSE, AND THROAT: Unremarkable. LUNGS: Clear to auscultation. CARDIAC: Regular rate and rhythm without murmur or gallop. ABDOMEN: Soft. Mild tenderness in the left lower quadrant. He reports it is much improved relative to yesterday. Abdomen nondistended. EXTREMITIES: Unremarkable. No ankle edema. LABORATORY DATA: White count 12 down from 16, hemoglobin 12. Basic metabolic profile normal. ASSESSMENT AND PLAN: Diverticulitis. We would continue bowel rest, clear liquids only, intravenous antibiotics. There is no indication for surgical intervention. As his pain improves, maybe after another 24 to 48 hours and once he is afebrile for 24 hours, could change his antibiotics to a p.o. Augmentin and consider discharge home. He should be on clear liquids until his pain markedly improves (it has already), and then once he is afebrile for 24 hours, advance him to full liquids and a low-fiber diet eventually for 2 weeks and high-fiber diet after that. He should receive colonoscopy as an outpatient in the next 6 to 8 weeks. I will follow along with you. Currently, he has no indication for surgical intervention. Job ID: [id number]
[2020-01-04] MEDS: D5 1/2 NS w/10 mEq KCl 1,000 ML/1,000 ML BAG IV SCH ×3 (13:57→20:23)
--- NOTE | 2020-01-04 14:26 | CON ---
DATE OF CONSULTATION: REASON FOR CONSULTATION: "Colitis." HISTORY OF PRESENT ILLNESS: Mr. Dash is a 24-year-old gentleman, who presented with lower abdominal pain in the suprapubic region, began about 24 or 36 hours prior to coming in. There is no associated diarrhea or bleeding. There is no abrupt onset. He states he came in because he had a similar bout like this back in June. At which time, he was in the hospital for several days and had an abscess and signs of perforation in the left lower abdomen, presumptively from diverticulitis. He did not want to wait and get that sick again. Presently, he is feeling a little bit better. He is not as tender as he was. He is tolerating liquid diet. He is receiving some IV antibiotics. I have been consulted and General Surgery has as well. The patient states he has had no episodes between June and this episode. He never did follow up after his previous bout. He denies any bouts of diarrhea, tenesmus, rectal bleeding, or cramping. He did have a temperature of 102 in the emergency room and was tachycardic. PAST MEDICAL HISTORY: Sigmoid colon perforation with abscess in June of 2018. He did not require surgery at that time. PAST SURGICAL HISTORY: None. ALLERGIES: NONE. MEDICATIONS AT HOME: None. SOCIAL HISTORY: Lives with his family. Does not smoke, drink, or use drugs. FAMILY HISTORY: Positive for sister who has had diverticulitis in her 40s. There is a great grandmother with colon cancer, apparently possibly a grandfather with colon cancer on his mother side. REVIEW OF SYSTEMS: Negative for dysuria, frequency, urgency, rashes, myalgias, or arthralgias. MEDICATIONS: Here; 1. Tylenol. 2. Toradol. 3. Morphine. 4. Zofran. 5. Protonix. 6. Zosyn. 7. Half-normal saline 150 an hour. 8. Potassium chloride. PHYSICAL EXAMINATION: VITAL SIGNS: Temperature is up to 102, and 100.2 today, currently 99.6. Respirations 18, pulse 110. Blood pressure is 98/51 this morning. LUNGS: Clear. HEART: Regular without clicks or murmurs. ABDOMEN: Soft and nontender. There is no rebound. There is no guarding. EXTREMITIES: Reveal no edema. There are no rashes, no lesions. SKIN: Warm to touch and slightly clammy. DIAGNOSTIC STUDIES: CAT scan films reviewed. LABORATORY DATA: White count 16,000 yesterday, 12,400 today. Hemoglobin 12. Sodium potassium 3.7, BUN and creatinine are 6 and 0.9. Liver function tests are normal. Lipase is normal ASSESSMENT: Colitis. This is likely a diverticulitis with microperforation that he has had it in the past with worse presentation. He did not follow up at that time and has not had a colonoscopy. Surgery opted not to operate him at last visit. RECOMMENDATIONS: 1. Continue Zosyn. 2. Continue clear liquids. 3. Continue antibiotics, oral fluid support as the patient is tachycardic and hypotensive. 4. It would be reasonable to consider another Surgical evaluation as he would benefit from resection once his acute illness is over as this is a second bout of microperforation, it would be reasonable to consider colonoscopy before that as well, but this is not the time during an episode of acute inflammation. He has no symptoms of colitis. There is no diagnosis of colitis. Job ID: [id number]
[2020-01-04] MEDS: Pantoprazole 40 MG VIAL IVP SCH (20:24)
[2020-01-04] MEDS ORDERED: Pantoprazole 40 MG VIAL IVP SCH (21:00)
--- NOTE | 2020-01-04 23:17 | PDOC.EVN ---
Event Note - Event Note Event Note: Patient seen and examined for Sepsis. Chart reviewed. Will monitor on Tele. Meropenem started for Sepsis. AM labs. I agree with note, A &P by CUSTOMER EXPERIENCE INTERN.
[2020-01-05] MEDS: Ketorolac Tromethamine 30 MG/ML VIAL IVP SCH ×5 (00:41→23:51)
[2020-01-05] MEDS: Piperacillin/Tazobactam 4.5 GM in Sodium Chloride 0.9% 100 ML IVPB SCH ×5 (00:42→23:51)
[2020-01-05] MEDS: D5 1/2 NS w/10 mEq KCl 1,000 ML/1,000 ML BAG IV SCH ×4 (05:21→23:51)
[2020-01-05 05:37] LABS: #Eosinphils 0.1 thou/uL (0.0-0.7); #Lymphocytes 0.9 thou/uL (1.20-3.40); #Monocytes 0.5 thou/uL (0.11-0.59); #Neutrophils 3.5 thou/uL (1.40-6.50); %Eosinophils 1.2 % (0.0-10.0); %Lymphocytes 18.5 % (21.0-51.0); %Monocytes 10.4 % (0.0-10.0); %Neutrophils 69.8 % (42.0-75.0); Hemoglobin 11.4 g/dL (14.0-18.0); Mean Corpuscular Hemoglobin 29.9 pg (27.0-31.0); Mean Corpuscular Volume 93.5 fL (78.0-98.0); Mean Platelet Volume 7.6 fL (7.4-10.4); Platelet Count 181 thou/uL (130-400); RBC Distribution Width 11.9 % (11.5-14.5); Red Blood Cell (RBC) Count 3.82 mill/uL (4.70-6.10)
[2020-01-05 06:15] LABS: ALT (SGPT) 19 U/L (8-55); AST (SGOT) 20 U/L (5-34); Albumin 3.2 g/dL (3.5-5.0); Alkaline Phosphatase 75 U/L (40-110); Anion Gap 9 mmol/L (10-20); BUN (Urea Nitrogen) Less than 4 mg/dL (8.9-20.6); Bilirubin, Total 0.3 mg/dL (0.2-1.2); Calc. Creatinine Clearance 210 mL/min (70-130); Calcium 8.1 mg/dL (7.8-10.44); Carbon Dioxide 21 mmol/L (22-29); Chloride 109 mmol/L (98-107); Estimated GFR-MDRD Greater than 90; Globulin 2.8 g/dL (2.4-3.5); Glucose 126 mg/dL (70-105); Potassium 3.4 mmol/L (3.5-5.1); Sodium 136 mmol/L (136-145)
[2020-01-05] MEDS: Potassium Chloride 20 MEQ TAB PO SCH ×2 (13:13→18:23)
--- NOTE | 2020-01-05 15:01 | PDOC.HOSPP ---
- Subjective Encounter Date: 01/05/20 Encounter Time: 09:00 Subjective: Mr. Dash is a 24 y/o M with a history for diverticulitis who presented for noninfective gastroenteritis and colitis. Patient stated that he is doing significantly better and is glad he came to the hospital sooner for this episode compared to previous experience. Patient was able to sleep through the night. He was a reliable historian, appears stated age, and was seated in hospital bed. - Objective Vital Signs & Weight: Vital Signs (12 hours) Temp Pulse Resp BP Pulse Ox 01/05/20 07:06 97.9 F 81 18 101/57 L 96 01/05/20 03:18 98.4 F 87 18 121/73 98 Weight Weight 230 lb I&O: 01/04/20 01/05/20 01/06/20 06:59 06:59 06:59 Intake Total 1260 Balance 1260 Result Diagrams: 01/05/20 05:25 01/05/20 05:24 Hospitalist ROS - Review of Systems Constitutional: denies: fever, chills, sweats, weakness, malaise, other Respiratory: denies: cough, dry, shortness of breath, hemoptysis, SOB with excertion, pleuritic pain, sputum, wheezing, other Cardiovascular: denies: chest pain, palpitations, orthopnea, paroxysmal noc. dyspnea, edema, light headedness, other Gastrointestinal: denies: nausea, vomiting, abdominal pain, diarrhea, constipation, melena, hematochezia, other Genitourinary: denies: dysuria, frequency, incontinence, hematuria, retention, other Neurological: denies: weakness, numbness, incoordination, change in speech, confusion, seizures, other - Medication Medications: Active Medications Generic Name Dose Route Start Last Admin Trade Name Freq PRN Reason Stop Dose Admin Acetaminophen 1,000 mg 01/04/20 11:50 01/04/20 17:54 Tylenol PO 1,000 mg Q6H PRN Administration Moderate to Severe Pain (6-10) Piperacillin Sod/Tazobactam 100 mls @ 200 mls/hr 01/04/20 12:00 01/05/20 11: 20 Sod 4.5 gm/ Sodium Chloride IVPB 100 mls Q6HR JENNIFER Administration Ketorolac Tromethamine 30 mg 01/04/20 12:00 01/05/20 11:19 Toradol IVP 01/09/20 12:01 30 mg Q6HR JENNIFER Administration Pantoprazole Sodium 40 mg 01/04/20 21:00 01/04/20 20:24 Protonix IVP 40 mg 2100 JENNIFER Administration Potassium Chloride 20 meq 01/05/20 12:00 01/05/20 13:13 K-Dur PO 01/05/20 17:01 20 meq TID-WM JENNIFER Administration - Exam General Appearance: awake alert Neck: supple, symmetric, no JVD, no carotid bruit Respiratory: CTAB, no wheezes, no rales, no ronchi, no tachypnea Gastrointestinal: soft, non-tender, normal bowel sounds, no palpable masses Extremities: no cyanosis, no clubbing, no edema Skin: normal turgor, no lesions, no rashes Musculoskeletal: normal tone, normal strength, no muscle wasting Psychiatric: normal affect, normal behavior, A&O x 3 Hosp A/P - Plan continue antibiotics, out of bed/ambulate Sepsis due to Colitis/Diverticulitis with microperforation Sinus tachycardia due to #1 Obesity BMI 31.2 Hyponatremia Hypokalemia PLAN: Replace Potassium Cont IV Zosyn Cont Clear liqd diet Cont IVF - reduce rate Pain control
--- NOTE | 2020-01-05 16:19 | PRG ---
DATE OF SERVICE: 01/05/2020 SUBJECTIVE: Raheel Dash is doing well today. He is afebrile. He does not have any pain. He is tolerating liquids. His white count is normal. OBJECTIVE: ABDOMEN: Soft and nontender. LUNGS: Clear to auscultation. ASSESSMENT AND PLAN: We would recommend advance to full liquids today and the patient can be discharged on oral antibiotics, Augmentin 875 p.o. b.i.d. for 10 days. From my standpoint, he can follow up in my office in 1 to 2 weeks. He should advance his diet slowly to a low-fiber diet over the next few days pending his pain tolerance. I would maintain low-fiber diet for 2 weeks and then transition to a high-fiber diet. As far as surgery goes, I would not recommend that he have surgery at this time. We can discuss that in office when he returns to see me. When his life is disrupted such that he is having multiple episodes and continuous antibiotics, surgery can be discussed. This will be a future discussion. He first needs to have a colonoscopy in the weeks to come with outpatient Gastroenterology. I will see him tomorrow if still present, but he is stable for discharge on oral antibiotics from my standpoint. Job ID: [id number]
--- NOTE | 2020-01-05 19:16 | PRG ---
DATE OF SERVICE: 01/05/2020 REASON FOR CONSULTATION: Acute diverticulitis with microperforation. SUBJECTIVE: The patient did not have any acute events or problems overnight. Today, he states that his abdominal pain has significantly improved and has minimal pain on palpation today. He has been able to tolerate a liquid diet without difficulty, although he has had multiple semi-solid or liquid stools that is creating maceration of the skin at the anal orifice. Otherwise, he denies any nausea, vomiting, fevers, chills, GI bleeding, dysphagia, or odynophagia. OBJECTIVE: VITAL SIGNS: Temperature 98.6, pulse 80, blood pressure 111/77, respiratory rate 16, and saturating 98% on room air. GENERAL: The patient was lying in bed, in no acute distress. Alert and oriented x4. CARDIOVASCULAR: Regular rate and rhythm. RESPIRATORY: Clear to auscultation bilaterally. ABDOMEN: Normoactive bowel sounds. Soft, nondistended, mild tenderness to palpation in the suprapubic region. EXTREMITIES: No cyanosis, clubbing, or edema. LABORATORY DATA: CBC with a white blood cell count of 5, hemoglobin 11.4, hematocrit 35.7, platelets 181. Chemistry with a sodium of 136, potassium 3.4, chloride 109, CO2 of 21, BUN less than 4, creatinine 0.8, glucose 126. IMAGING DATA: No current GI imaging is available for review. ASSESSMENT AND PLAN: The patient is a 24-year-old gentleman with a past medical history of sigmoid colon perforation with abscess in June of 2018, presenting with a repeat bout of diverticulitis with microperforation. Diverticulitis with microperforation: The patient initially presented with increased lower abdominal pain in the suprapubic region, similar to the pain he experienced in June 2019. Imaging obtained on admission was consistent with diverticulitis, but showed evidence of free air outside the colon concerning for perforation. He was subsequently evaluated by the General Surgery Service and at this time feels that he is not currently a candidate for surgical intervention. During the course of this hospitalization, he has responded well to more conservative management with antibiotic therapy with almost complete resolution of his abdominal pain today and being able to tolerate a liquid diet without difficulty. At this time, the patient does have evidence of diverticulitis on imaging and is consistent with on clinical history as well, but it is unclear if there is another underlying process that may be contributing to his diverticulitis. As such, the patient will need a colonoscopy within the next six weeks for further evaluation, but not necessarily now given the significant amount of inflammation and increased risk of perforation if this was to be performed at this time. RECOMMENDATIONS: 1. We would continue with IV antibiotics until ready for discharge and then discharged on Augmentin per General Surgery recommendations. 2. Advance the diet as tolerated with the plan to discharge the patient on a low fiber diet for the next 2 weeks, then slowly add fiber back into his diet. 3. Pain control per primary team. 4. The patient will need a colonoscopy within the next six weeks for further evaluation of his recurrent diverticulitis and for evaluation of other underlying process (if present). 5. We would have the patient follow up in the GI Clinic in 3 to 4 weeks for re-evaluation and scheduling of the colonoscopy at that time. We have no further recommendations and we will sign off at this time. Please call with any questions. Job ID: [id number]
[2020-01-05] MEDS: Amoxicillin/Potassium Clav 875 MG TAB PO SCH (20:44)
[2020-01-05] MEDS: Pantoprazole 40 MG VIAL IVP SCH (20:44)
[2020-01-06 05:38] LABS: Hemoglobin 11.9 g/dL (14.0-18.0); Mean Corpuscular HGB CONC 33.7 g/dL (32.0-36.0); Mean Corpuscular Hemoglobin 31.4 pg (27.0-31.0); Mean Corpuscular Volume 93.3 fL (78.0-98.0); Mean Platelet Volume 7.5 fL (7.4-10.4); Platelet Count 190 thou/uL (130-400); RBC Distribution Width 11.9 % (11.5-14.5); Red Blood Cell (RBC) Count 3.78 mill/uL (4.70-6.10); White Blood Cell (WBC) Count 3.6 thou/uL (4.8-10.8)
[2020-01-06] MEDS: Piperacillin/Tazobactam 4.5 GM in Sodium Chloride 0.9% 100 ML IVPB SCH (05:48)
[2020-01-06] MEDS: Ketorolac Tromethamine 30 MG/ML VIAL IVP SCH (05:49)
[2020-01-06 05:55] LABS: ALT (SGPT) 25 U/L (8-55); AST (SGOT) 22 U/L (5-34); Albumin 3.2 g/dL (3.5-5.0); Alkaline Phosphatase 101 U/L (40-110); Anion Gap 8 mmol/L (10-20); BUN (Urea Nitrogen) Less than 4 mg/dL (8.9-20.6); Bilirubin, Total 0.3 mg/dL (0.2-1.2); Calc. Creatinine Clearance 203 mL/min (70-130); Calcium 8.4 mg/dL (7.8-10.44); Carbon Dioxide 24 mmol/L (22-29); Chloride 109 mmol/L (98-107); Estimated GFR-MDRD Greater than 90; Globulin 2.7 g/dL (2.4-3.5); Glucose 118 mg/dL (70-105); Potassium 3.6 mmol/L (3.5-5.1); Protein, Total 5.9 g/dL (6.0-8.3); Sodium 137 mmol/L (136-145)
[2020-01-06 06:01] LABS: Band 9 % (5-11); Eosinophils 1 % (0-10); Lymphocytes 46 % (21-51); MDiff Complete? YES; Monocytes 10 % (0-10); Neutrophil 34 % (42-75)
[2020-01-06 08:51] VITALS: TEMP 97.7
[2020-01-06] MEDS: Amoxicillin/Potassium Clav 875 MG TAB PO SCH (09:48)
--- NOTE | 2020-01-06 10:17 | PDOC.HOSPP ---
- Subjective Encounter Date: 01/06/20 - Objective Vital Signs & Weight: Vital Signs (12 hours) Temp Pulse Resp BP Pulse Ox 01/06/20 08:00 98 01/06/20 07:40 97.7 F 65 16 101/65 98 01/06/20 03:52 98.2 F 66 16 106/67 98 01/06/20 00:04 98.8 F 83 16 115/76 98 Weight Weight 230 lb I&O: 01/05/20 01/06/20 01/07/20 06:59 06:59 06:59 Intake Total 1260 Balance 1260 Result Diagrams: 01/06/20 05:07 01/06/20 05:07 Hospitalist ROS - Medication Medications: Active Medications Generic Name Dose Route Start Last Admin Trade Name Freq PRN Reason Stop Dose Admin Acetaminophen 1,000 mg 01/04/20 11:50 01/04/20 17:54 Tylenol PO 1,000 mg Q6H PRN Administration Moderate to Severe Pain (6-10) Amoxicillin/Clavulanate Potassium 875 mg 01/05/20 21:00 01/06/20 09:48 Augmentin PO 875 mg Q12HR JENNIFER Administration Piperacillin Sod/Tazobactam 100 mls @ 200 mls/hr 01/04/20 12:00 01/06/20 05: 48 Sod 4.5 gm/ Sodium Chloride IVPB 100 mls Q6HR JENNIFER Administration Potassium Chloride/Dextrose/Sod Cl 1,000 ml in 1,000 mls @ 125 mls/hr 10:12 01/05/20 23:51 D5 1/2 Ns W/10 Meq Kcl IV 1,000 mls .Q8H JENNIFER Administration Ketorolac Tromethamine 30 mg 01/04/20 12:00 01/06/20 05:49 Toradol IVP 01/09/20 12:01 30 mg Q6HR JENNIFER Administration Pantoprazole Sodium 40 mg 01/04/20 21:00 01/05/20 20:44 Protonix IVP 40 mg 2100 JENNIFER Administration Hosp A/P - Plan Sepsis due to Colitis/Diverticulitis with microperforation Sinus tachycardia due to #1 Obesity BMI 31.2 Hyponatremia Hypokalemia PLAN: Replace Potassium Cont IV Zosyn Cont Clear liqd diet Cont IVF - reduce rate Pain control
[2020-01-06 12:14] VITALS: BP 128/81
--- NOTE | 2020-01-06 12:24 | DIS ---
DATE OF ADMISSION: 01/03/2020 DATE OF DISCHARGE: 01/06/2020 DISCHARGE DISPOSITION: Home. FOLLOWUP: 1. Follow up with primary care physician, [facility], in 1 week. 2. The patient was seen and examined on the day of discharge. Denies any new complaints. No nausea, vomiting, or abdominal pain reported. 3. The patient was also advised to follow up with GI Clinic in 2 weeks. Follow up with General Surgery in 2 to 3 weeks. 4. Colonoscopy in 6 weeks is recommended. Primary care physician advised to follow. DISCHARGE MEDICATIONS: Augmentin 875 mg twice daily for 10 days. The patient was also advised to take probiotics over the counter. BRIEF HOSPITAL COURSE: The patient is a 24-year-old male with diverticulitis in 2019, presented to the hospital with abdominal discomfort. Please refer to the history and physical for further details. The patient was admitted to the hospital with a diagnosis of colitis/diverticulitis with microperforation. He was found to have significant tachycardia with heart rate in 140s to 150s along with temperature of 102.2. He was managed conservatively with n.p.o. along with IV meropenem. His CRP was 30.8. His symptoms improved with conservative measures. Stool for C diff, Campylobacter, and Shigella came back negative. Blood cultures were negative as well. Abdominal pain has significantly improved. He is tolerating full liquid diet. He was advised to stay on low-fiber diet for 2 weeks and to change to high-fiber diet after that. He was advised to follow up with GI Clinic for colonoscopy in 6 weeks. FINAL DIAGNOSES: 1. Severe sepsis secondary to sigmoid colitis/diverticulitis with microperforation, present on admission. 2. Sinus tachycardia secondary to above. 3. History of diverticulosis with diverticulitis in 2019. 4. Obesity with a body mass index of 31.2. 5. Hyponatremia. 6. Hypokalemia. The patient understands the above plan of care. Job ID: [id number]
== END 2020-01-06 12:28 | disposition home or self-care (01) | DRG 872 ==
LOC: ERS 13:17 → ERHOLD 15:58 → 2NO 20:47 → SURG B 01-04 16:29
PROVIDERS: ADMIT Internal Medicine; ATTEND Internal Medicine
DX: A41.9 Sepsis, unspecified organism (principal); K57.20 Diverticulitis of large intestine with perforation and abscess without bleeding; E87.1 Hypo-osmolality and hyponatremia; R65.20 Severe sepsis without septic shock; E87.6 Hypokalemia; E66.9 Obesity, unspecified; Z68.31 Body mass index [BMI] 31.0-31.9, adult; Z91.041 Radiographic dye allergy status
CPT/HCPCS: 36415; 74177; 80048; 80053; 81003; 81015; 83605; 83630; 83690; 83735; 85025; 86140; 87040; 87045; 87046; 87149; 87324; 87328; 87329; 87427; 87449; 96361; 96365; 96375; C9113; J1885; J2185; J2270; J2543; J3475; J3480; J3490; J7070; Q9967

== ENCOUNTER 2020-07-11 13:50 | Emergency (ER) | payer SELFPAY ==
[2020-07-11 14:35] LABS: #Lymphocytes 2.2 thou/uL (1.20-3.40); #Monocytes 0.5 thou/uL (0.11-0.59); #Neutrophils 7.1 thou/uL (1.40-6.50); %Basophils 0.3 % (0.0-1.0); %Eosinophils 0.5 % (0.0-10.0); %Lymphocytes 22.1 % (21.0-51.0); %Monocytes 5.3 % (0.0-10.0); %Neutrophils 71.8 % (42.0-75.0); Hemoglobin 16.2 g/dL (14.0-18.0); Mean Corpuscular HGB CONC 34.5 g/dL (32.0-36.0); Mean Corpuscular Hemoglobin 31.2 pg (27.0-31.0); Mean Corpuscular Volume 90.6 fL (78.0-98.0); Platelet Count 262 thou/uL (130-400); RBC Distribution Width 12.7 % (11.5-14.5); Red Blood Cell (RBC) Count 5.18 mill/uL (4.70-6.10); White Blood Cell (WBC) Count 9.9 thou/uL (4.8-10.8)
[2020-07-11 15:00] LABS: ALT (SGPT) 18 U/L (8-55); AST (SGOT) 16 U/L (5-34); Albumin 4.8 g/dL (3.5-5.0); Alkaline Phosphatase 74 U/L (40-110); Anion Gap 19 mmol/L (10-20); BUN (Urea Nitrogen) 10 mg/dL (8.9-20.6); Bilirubin, Total 0.5 mg/dL (0.2-1.2); CK (CPK) 171 U/L (30-200); Calc. Creatinine Clearance 0 mL/min (70-130); Calcium 9.3 mg/dL (7.8-10.44); Carbon Dioxide 18 mmol/L (22-29); Chloride 104 mmol/L (98-107); Globulin 3.5 g/dL (2.4-3.5); Glucose 161 mg/dL (70-105); Potassium 3.8 mmol/L (3.5-5.1); Protein, Total 8.3 g/dL (6.0-8.3); Sodium 137 mmol/L (136-145)
== END 2020-07-11 16:55 | disposition home or self-care (01) ==
LOC: ERS 13:50
DX: R56.9 Unspecified convulsions (principal); F19.10 Other psychoactive substance abuse, uncomplicated
CPT/HCPCS: 36415; 80053; 82550; 83605; 85025; 93005

== ENCOUNTER 2022-03-13 10:39 | Emergency (ER) | payer SELFPAY ==
[2022-03-13] MEDS ORDERED: levETIRAcetam 500 MG/5 ML VIAL ONE (11:44)
[2022-03-13 11:48] LABS: #Lymphocytes 1.3 thou/uL (1.20-3.40); #Monocytes 0.5 thou/uL (0.11-0.59); #Neutrophils 7.1 thou/uL (1.40-6.50); %Basophils 0.5 % (0.0-1.0); %Eosinophils 0.3 % (0.0-10.0); %Monocytes 5.5 % (0.0-10.0); %Neutrophils 78.7 % (42.0-75.0); Hemoglobin 15.6 g/dL (14.0-18.0); Mean Corpuscular HGB CONC 33.4 g/dL (32.0-36.0); Mean Corpuscular Volume 92.9 fL (78.0-98.0); Mean Platelet Volume 7.8 fL (7.4-10.4); Platelet Count 208 thou/uL (130-400); RBC Distribution Width 12.3 % (11.5-14.5); Red Blood Cell (RBC) Count 5.01 mill/uL (4.70-6.10)
[2022-03-13 12:08] LABS: ALT (SGPT) 17 U/L (8-55); AST (SGOT) 16 U/L (5-34); Alkaline Phosphatase 74 U/L (40-110); Anion Gap 13 mmol/L (10-20); BUN (Urea Nitrogen) 12 mg/dL (8.9-20.6); Bilirubin, Total 0.5 mg/dL (0.2-1.2); Calc. Creatinine Clearance 0 mL/min (70-130); Carbon Dioxide 24 mmol/L (22-29); Chloride 104 mmol/L (98-107); Estimated GFR 88; Globulin 3.2 g/dL (2.4-3.5); Glucose 106 mg/dL (70-105); Potassium 4.3 mmol/L (3.5-5.1); Protein, Total 8.2 g/dL (6.0-8.3); Sodium 137 mmol/L (136-145)
== END 2022-03-13 13:36 | disposition home or self-care (01) ==
LOC: ERS 10:39
DX: R56.9 Unspecified convulsions (principal); S00.83XA Contusion of other part of head, initial encounter; W18.30XA Fall on same level, unspecified, initial encounter
CPT/HCPCS: 36415; 70450; 72125; 80053; 84443; 85025; 96365; J1953

== ENCOUNTER 2022-06-08 17:59 | Inpatient (IN) | payer SELFPAY ==
[~2022-06-08 17:59] MED LIST: Iopamidol-370 76% 500 ML 1 ML ONE
[2022-06-08] MEDS ORDERED: methylPREDNISolone Sod Succ 40 MG VIAL ONE (18:39)
[2022-06-08] MEDS ORDERED: Famotidine/PF 20 mg/2ml Vial ONE (18:39)
[2022-06-08] MEDS ORDERED: Ondansetron PF 4 MG/2 ML Vial ONE (18:39)
[2022-06-08] MEDS ORDERED: Morphine 4 MG/ML VIAL ONE (18:39)
[2022-06-08] MEDS ORDERED: diphenhydrAMINE 50 MG/ML VIAL ONE (18:39)
[2022-06-08 18:51] LABS: #Eosinphils 0.1 thou/uL (0.0-0.7); #Lymphocytes 2.6 thou/uL (1.20-3.40); #Monocytes 1.1 thou/uL (0.11-0.59); #Neutrophils 11.3 thou/uL (1.40-6.50); %Basophils 0.2 % (0.0-1.0); %Eosinophils 0.6 % (0.0-10.0); %Neutrophils 75.2 % (42.0-75.0); Hemoglobin 13.9 g/dL (14.0-18.0); Mean Corpuscular HGB CONC 35.3 g/dL (32.0-36.0); Mean Corpuscular Hemoglobin 32.6 pg (27.0-31.0); Mean Corpuscular Volume 92.3 fl (78.0-98.0); Platelet Count 274 10x3/uL (130-400); RBC Distribution Width 11.6 % (11.5-14.5); Red Blood Cell (RBC) Count 4.25 mill/uL (4.70-6.10); White Blood Cell (WBC) Count 15.1 10x3/uL (4.8-10.8)
[2022-06-08 19:11] LABS: ALT (SGPT) 15 U/L (8-55); AST (SGOT) 15 U/L (5-34); Alkaline Phosphatase 80 U/L (40-110); Anion Gap 13 mmol/L (10-20); BUN (Urea Nitrogen) 8 mg/dL (8.9-20.6); Bilirubin, Total 0.6 mg/dL (0.2-1.2); Calc. Creatinine Clearance 0 mL/min (70-130); Carbon Dioxide 25 mmol/L (22-29); Chloride 100 mmol/L (98-107); Estimated GFR 118; Globulin 3.5 g/dL (2.4-3.5); Glucose 102 mg/dL (70-105); Lipase 14 U/L (8-78); Potassium 4.2 mmol/L (3.5-5.1); Protein, Total 7.5 g/dL (6.0-8.3); Sodium 134 mmol/L (136-145)
[2022-06-08] MEDS ORDERED: Piperacillin/Tazobactam 3.375 GM VIAL ONE (20:12)
[2022-06-08] MEDS ORDERED: Senokot S 8.6-50 MG TAB PO PRN (21:38)
[2022-06-08] MEDS ORDERED: Ondansetron ODT 4 MG TAB PO PRN (21:38)
[2022-06-08] MEDS ORDERED: Acetaminophen 325 MG TAB PO PRN (21:38)
[2022-06-08] MEDS ORDERED: Ondansetron PF 4 MG/2 ML Vial IVP PRN (21:40)
[2022-06-08] MEDS ORDERED: Morphine 4 MG/ML VIAL SLOW IVP PRN (21:42)
[2022-06-08 21:45] LABS: Bacteria/HPF 4+ HPF (None Seen); Bilirubin Negative (Negative); Blood, Urine Negative (Negative); Clarity Turbid (Clear); Glucose, Urine (Dipstick) Normal (Negative); Ketone, Urine Negative (Negative); Leukocyte 75 Leu/uL (Negative); Nitrite Negative (Negative); Protein, Urine (Dipstick) 10 mg/dL (Neg-Trace); RBC/HPF 0-3 HPF (0-3); Specific Gravity, Urine 1.024 (1.002-1.036); Squamous Epithelial None Seen HPF (0-3); Urobilinogen 12 mg/dL (Less than 2); WBC/HPF 21-50 HPF (0-3)
[2022-06-08 23:33] VITALS: BMI 31.7
[2022-06-08] MEDS: Dextrose 5%-Lactated Ringers 1,000 ML IV SCH (23:46)
[2022-06-09] MEDS: Piperacillin/Tazobactam 3.375 GM in Sodium Chloride 0.9% 100 ML IVPB SCH ×3 (00:18→16:24)
[2022-06-09 06:08] LABS: #Lymphocytes 1.3 thou/uL (1.20-3.40); #Monocytes 0.3 thou/uL (0.11-0.59); #Neutrophils 10.4 thou/uL (1.40-6.50); %Basophils 0.1 % (0.0-1.0); %Eosinophils 0.1 % (0.0-10.0); %Lymphocytes 10.6 % (21.0-51.0); %Monocytes 2.6 % (0.0-10.0); %Neutrophils 86.6 % (42.0-75.0); Hemoglobin 13.7 g/dL (14.0-18.0); Mean Corpuscular HGB CONC 34.7 g/dL (32.0-36.0); Mean Corpuscular Hemoglobin 31.8 pg (27.0-31.0); Mean Corpuscular Volume 91.7 fl (78.0-98.0); Mean Platelet Volume 7.3 fL (7.4-10.4); Platelet Count 280 10x3/uL (130-400); RBC Distribution Width 11.3 % (11.5-14.5); Red Blood Cell (RBC) Count 4.32 mill/uL (4.70-6.10)
[2022-06-09 06:13] LABS: Bacteria/HPF None Seen HPF (None Seen); Bilirubin Negative (Negative); Blood, Urine Negative (Negative); CAUTI Indications for Culture Dysuria,urgency,freq; Clarity Clear (Clear); Glucose, Urine (Dipstick) Normal (Negative); Ketone, Urine Negative (Negative); Leukocyte 75 Leu/uL (Negative); Nitrite Negative (Negative); Protein, Urine (Dipstick) 20 mg/dL (Neg-Trace); RBC/HPF 0-3 HPF (0-3); Squamous Epithelial None Seen HPF (0-3)
[2022-06-09 06:14] LABS: Specific Gravity, Urine Greater than 1.060 (1.002-1.036)
[2022-06-09 06:16] LABS: Urine Culture Reflex Yes Yes
[2022-06-09 06:28] LABS: Anion Gap 14 mmol/L (10-20); BUN (Urea Nitrogen) 10 mg/dL (8.9-20.6); Calc. Creatinine Clearance 195 mL/min (70-130); Calcium 9.2 mg/dL (7.8-10.44); Carbon Dioxide 22 mmol/L (22-29); Estimated GFR 122; Glucose 158 mg/dL (70-105); Potassium 4.3 mmol/L (3.5-5.1)
[2022-06-09 06:49] LABS: Chloride 103 mmol/L (98-107); Sodium 135 mmol/L (136-145)
[2022-06-09] MEDS: Dextrose 5%-Lactated Ringers 1,000 ML IV SCH (09:36)
[2022-06-09] MEDS: levETIRAcetam 500 MG TAB PO SCH ×2 (09:36→20:26)
[2022-06-09] MEDS: Famotidine 20 MG TAB PO SCH ×2 (09:37→20:26)
[2022-06-09] MEDS ORDERED: levETIRAcetam 500 MG TAB PO SCH (21:00)
[2022-06-10] MEDS: Piperacillin/Tazobactam 3.375 GM in Sodium Chloride 0.9% 100 ML IVPB SCH ×3 (01:18→16:19)
[2022-06-10] MEDS: levETIRAcetam 500 MG TAB PO SCH ×2 (10:11→20:15)
[2022-06-10] MEDS: Famotidine 20 MG TAB PO SCH ×2 (10:11→20:15)
[2022-06-11] MEDS: Piperacillin/Tazobactam 3.375 GM in Sodium Chloride 0.9% 100 ML IVPB SCH (00:42)
[2022-06-11] MEDS ORDERED: Amoxicillin/Potassium Clav 875 MG TAB PO SCH (09:00)
[2022-06-11] MEDS: Famotidine 20 MG TAB PO SCH (09:07)
[2022-06-11] MEDS: levETIRAcetam 500 MG TAB PO SCH (09:07)
[2022-06-11 11:09] VITALS: BP 101/66; TEMP 97.9
[2022-06-12] MEDS ORDERED: FLU VACC QS2022-23(6MOS UP)/PF 60 MCG/0.5 ML SYRINGE IM ONE (09:00)
== END 2022-06-11 11:50 | disposition home or self-care (01) | DRG 872 ==
LOC: ERS 17:59 → T4-B 20:50
PROVIDERS: ADMIT Student in an Organized Health Care Education/Training Program; ATTEND Internal Medicine
DX: A41.9 Sepsis, unspecified organism (principal); K57.32 Diverticulitis of large intestine without perforation or abscess without bleeding; Z20.822 Contact with and (suspected) exposure to COVID-19; G40.909 Epilepsy, unspecified, not intractable, without status epilepticus; Z91.041 Radiographic dye allergy status
CPT/HCPCS: 36415; 74177; 80048; 80053; 81001; 81003; 81015; 83605; 83690; 85025; 87040; 87077; 87086; 87186; 96361; 96374; 96375; J1200; J2270; J2405; J2543; J2920; J3490; Q9967; S0028; U0003; U0005

== ENCOUNTER 2023-02-25 11:28 | Emergency (ER) | payer SELFPAY ==
[2023-02-25] MEDS ORDERED: Ibuprofen 200 MG TAB ONE (13:34)
[2023-02-25 13:38] LABS: SARS-CoV-2 NAA Rapid Test Not Detected (NotDetected)
[2023-02-25 13:48] LABS: Bacteria/HPF None Seen HPF (None Seen); CAUTI Indications for Culture Dysuria,urgency,freq; RBC/HPF 0-3 HPF (0-3); Squamous Epithelial None Seen HPF (0-3); WBC/HPF 0-3 HPF (0-3)
[2023-02-25 13:50] LABS: Bilirubin Negative (Negative); Blood, Urine Negative (Negative); Glucose, Urine (Dipstick) Negative (Negative); Ketone, Urine Negative (Negative); Leukocyte Small (Negative); Nitrite Positive (Negative); Protein, Urine (Dipstick) Negative (Neg-Trace); Urobilinogen 0.2 mg/dL (Less than 2)
[2023-02-25 13:51] LABS: Clarity Clear (Clear)
[2023-02-25 13:52] LABS: Urine Culture Reflex No No
[2023-02-26 02:44] LABS: Chlam.trachomatis by PCR,Urine Not Detected (NotDetected); GC N.gonorrhoeae PCR,UrineVOID Not Detected (NotDetected)
== END 2023-02-25 14:51 | disposition home or self-care (01) ==
LOC: ERS 11:28
DX: M79.10 Myalgia, unspecified site (principal); R09.81 Nasal congestion; R35.0 Frequency of micturition; Z20.822 Contact with and (suspected) exposure to COVID-19
CPT/HCPCS: 81001; 87077; 87086; 87186; 87491; 87591; 99283

== ENCOUNTER 2025-01-13 14:09 | Emergency (ER) | payer OTHER, SELFPAY | END 2025-01-13 15:47 | disposition home or self-care (01) | LOC: ERS 14:09 | DX: L23.7 Allergic contact dermatitis due to plants, except food (principal) | CPT/HCPCS: 96372; 99282; J2919 ==

== ENCOUNTER 2025-04-04 09:24 | Emergency (ER) | payer SELFPAY ==
[2025-04-04] MEDS ORDERED: Ketorolac Tromethamine 30 MG (1 mL) VIAL ONE (09:48)
[2025-04-04 10:16] LABS: #Basophils 0.03 10x3/uL (0.0-0.2); #Eosinophils 0.09 10x3/uL (0.0-0.7); #Monocytes 0.55 10x3/uL (0.11-0.59); #Neutrophils 5.79 10x3/uL (1.40-6.50); %Basophils 0.4 % (0.0-1.0); %Eosinophils 1.1 % (0.0-10.0); %Lymphocytes 19.0 % (21.0-51.0); %Monocytes 6.8 % (0.0-10.0); %Neutrophils 72.1 % (42.0-75.0); Hematocrit 37.7 % (42.0-52.0); Hemoglobin 13.1 g/dL (14.0-18.0); Mean Corpuscular Hemoglobin 29.1 pg (27.0-31.0); Mean Corpuscular Volume 83.8 fL (78.0-98.0); Platelet Count 317 10x3/uL (130-400); Red Blood Cell (RBC) Count 4.50 mill/uL (4.70-6.10); White Blood Cell (WBC) Count 8.04 10x3/uL (4.8-10.8)
[2025-04-04 10:53] LABS: ALT (SGPT) 18 U/L (Less than 45); AST (SGOT) 20 U/L (11-34); Albumin 3.9 g/dL (3.1-4.5); Alkaline Phosphatase 83 U/L (40-110); Anion Gap 13 mmol/L (10-20); BUN (Urea Nitrogen) 9 mg/dL (8.9-20.6); Bilirubin, Total 0.2 mg/dL (0.3-1.2); Calc. Creatinine Clearance 0 mL/min (70-130); Calcium 9.3 mg/dL (7.8-10.44); Carbon Dioxide 23 mmol/L (22-29); Chloride 106 mmol/L (98-107); Globulin 3.8 g/dL (2.4-3.5); Glucose 109 mg/dL (70-105); Potassium 4.1 mmol/L (3.5-5.1); Sodium 138 mmol/L (136-145)
== END 2025-04-04 11:35 | disposition home or self-care (01) ==
LOC: ERS 09:24
DX: B34.9 Viral infection, unspecified (principal)
CPT/HCPCS: 71046; 80053; 85025; 87428; 96374; J1885